=== PATIENT | male | born 2000 | race Caucasian/White ===

== ENCOUNTER 2024-03-31 19:41 | Emergency (ER) | payer MEDICAID, SELFPAY ==
[2024-03-31 19:42] VITALS: BP 156/86; PULSE 93; RESP 16; TEMP 36.8; O2SAT 96
--- NOTE | 2024-03-31 20:52 | ED.VIS.FALL ---
HPI HPI - Fall History of Present Illness Chief Complaint: Fall PFSH PFSH Allergy/AdvReac Type Severity Reaction Status Date / Time pear Allergy Severe Anaphylaxis Verified 03/31/24 19:46 Penicillins (PCN) Allergy Severe Rash Verified 03/31/24 19:46 Pertussis Vaccines Allergy Severe OTHER Verified 03/31/24 19:46 Social History Smoking Status: Never smoker EXAM Physical Exam Const Vital Signs: 03/31/24 19:42 03/31/24 20:48 03/31/24 21:42 Temperature 98.2 F Temperature Source Temporal Pulse Rate 93 70 Respiratory Rate 16 22 H Respiratory Effort Normal Non-Labored Blood Pressure 156/86 H 155/75 H Blood Pressure Mean 109 101 Pulse Ox 96 96 Oxygen Delivery Method Room Air Room Air Room Air MDM MDM MDM Narrative Medical decision making narrative: HISTORY OF PRESENT ILLNESS: 23-year-old male presents with fall. He notes headache, bilateral shoulder pain, low back pain after tripping and hitting a table around 430. Notes he took a gram of Tylenol prior to arrival. He further states REVIEW OF SYSTEMS: Pertinent positives: Headache, shoulder pain, back pain Pertinent negatives: Focal weakness or loss of sensation PHYSICAL EXAM: Nursing triage notes reviewed, Vital signs reviewed Primary Survey Airway: Intact Breathing: Bilateral breath sounds Circulation: Palpable bilateral femorals, Palpable bilateral radial, Palpable bilateral DP and Palpable bilateral PT Disability / Spine precautions GCS Score: Eye Openin Verbal Response: 5 Motor Response: 6 Secondary Survey Constitutional: Please see MDM Head: TTP over posterior occiput, midface stable, NO jaw malocclusion, No Cephalohematoma, and No Lacerations noted Eye: Pupils equal round and reactive to light, Extraocular muscles intact and No periorbital ecchymosis or stepoff, no evidence of entrapment ENT: Oropharynx clear, no lacerations, no hemotympanum, no raccoon eyes or workman sign Cervical spine / Neck: No cervical spine bony tenderness, crepitance, or stepoff deformity Trachea midline Lungs: Clear to auscultation, No asymmetric rise and No crepitus, no flail chest Cardiac: Regular rate and rhythm and No murmurs Abdomen: Soft, Nontender and No rebound Pelvis: Pelvis stable to compression : No evidence of genital injury Back: TTP over mid thoracic and upper lumbar spine. No obvious step-offs. Neuro: At baseline, intact strength and sensation in bilateral upper and lower extremities. 2+ patellar reflexes bilaterally. Extremities: NO gross Deformities Psych: Normal affect Nursing triage notes reviewed, Vital signs reviewed MEDICAL DECISION MAKING: Chief Complaint: Headache, back pain, bilateral shoulder External records reviewed: Imaging reviewed: No recent advanced imaging of the axial skeleton or head noted in the [facility] Narrative: Patient was hemodynamically stable, afebrile and nontoxic-appearing. Primary secondary trauma surveys concerning for the following differential: I considered the following differential diagnosis: Intracranial hemorrhage, cervical spine, thoracic spine lumbar spine traumatic injury I obtained imaging studies to further elucidate etiology the patient's complaint. ALL IMAGES (IF OBTAINED) HAVE BEEN PERSONALLY REVIEWED AND INTERPRETED BY MYSELF. CT scan of the head, cervical spine, thoracic lumbar spine were negative for acute traumatic injury. The patient is likely suffering from contusions of these areas. He was instructed to take Tylenol, ibuprofen, use ice. He was instructed return to the ED if symptoms change or worsen. He was given close follow-up instructions as well The patient and/or family, caregivers express understanding. The patient and/or family, caregivers agrees with the plan. Shared decision making: I will have a discussion with the patient and or visitors regarding risk/benefits of further testing or admission. They will be made aware of of the risk/benefits inherent in this decision they will be given the opportunity to voice understanding. Total critical care time today provided was at least 0 minutes. This excludes separately billable procedures. Critical care time (if documented) is secondary to the patient having high probability of clinically significant/life threatening deterioration in the patient's condition which required my urgent intervention. Impression: 1. Fall 2. Head contusion 3. Back contusion Dispo: Discharge home This note was generated with [employer] dictation software. It may contain incorrect words, spelling, and punctuation that were not noted in review of the chart prior to signing. Radiography Diagnostic Testing: Clinical Impression(s) from Imaging Studies Brain CT 03/31/24 21:20 IMPRESSION: 1. Normal CT examination 2. No intracranial evidence of acute traumatic injury. 3. No intracranial mass, hemorrhage or acute territorial infarct. 4. No fractures identified. 5. No radiographically significant sinus disease.. Electronically Signed: Byron Alexander MD at 21:42 EDT , Cervical Spine CT 03/31/24 21:20 IMPRESSION: 1. Reversal cervical lordosis which can be due to muscular spasm versus positioning 2. No evidence of acute cervical spinal fracture or spondylolisthesis. No acutely acquired canal stenosis. Electronically Signed: Byron Alexander MD at 21:44 EDT , Lumbar Spine CT 03/31/24 21:20 IMPRESSION: 1. No evidence of acute LUMBAR spinal fracture or spondylolisthesis. Electronically Signed: Byron Alexander MD at 22:38 EDT , Thoracic Spine CT 03/31/24 21:20 IMPRESSION: 1. No evidence of acute THORACIC spinal fracture or spondylolisthesis. Electronically Signed: Byron Alexander MD at 22:40 EDT , Discharge Plan Triage Chief Complaint: Fall ED Provider: Anotnio Rodriguez Dx/Rx/DC Orders Primary Care Provider: Care Physician,No Primary Referrals: Care Physician,No Primary [Primary Care Provider] - Print Language: Estonian
--- NOTE | 2024-03-31 21:20 | CT_ITS ---
INDICATION: back pain EXAMINATION: CT THORACIC SPINE - CT Spine Thoracic W/O Contrast Injection TECHNIQUE: Helically acquired images were obtained of the thoracic spine. 2D reformats were reviewed. A radiation dose optimization technique was used for this scan. IV Contrast dosage and agent: None. COMPARISON: None. FINDINGS: VERTEBRAE: No fracture. No discrete lytic or blastic abnormality observed. VERTEBRAL ALIGNMENT: Unremarkable. There is preservation of the normal thoracic kyphosis. DISCS: Disc heights are preserved. VISUALIZED THORAX: Visualized thoracic aorta is nondilated. Lung trevizo are clear. CT/Spine Thoracic without Contras IMPRESSION: 1. No evidence of acute THORACIC spinal fracture or spondylolisthesis. Electronically Signed: Byron Alexander MD at 22:40 EDT ,
--- NOTE | 2024-03-31 21:20 | CT_ITS ---
INDICATION: back pain EXAMINATION: CT LUMBAR SPINE - CT Spine Lumbar W/O Contrast Injection TECHNIQUE: Helically acquired images were obtained of the lumbar spine. 2D reformats were reviewed. A radiation dose optimization technique was used for this scan. IV Contrast dosage and agent: None. COMPARISON: None. FINDINGS: VERTEBRAE: No fracture or traumatic subluxation. No discrete lytic or blastic abnormality observed. Normal alignment. DISCS and SPINAL CANAL: Disc heights are preserved. No critical stenosis. VISUALIZED ABDOMEN: Visualized abdominal aorta is not dilated. There is no retroperitoneal adenopathy. CT/Spine Lumbar without Contrast IMPRESSION: 1. No evidence of acute LUMBAR spinal fracture or spondylolisthesis. Electronically Signed: Byron Alexander MD at 22:38 EDT ,
--- NOTE | 2024-03-31 21:20 | CT_ITS ---
INDICATION: neck pain EXAMINATION: CT CERVICAL SPINE - CT Spine Cervical W/O Contrast Injection TECHNIQUE: Helically acquired images were obtained of the cervical spine. 2D reformatted images were reviewed. A radiation dose optimization technique was used for this scan. Noncontrast images obtained. IV Contrast dosage and agent: None. Radiation Dose (provided by facility) CTDIvol (NA ) mGy, DLP ( NA) mGy-cm COMPARISON: : No relevant prior comparison study available FINDINGS: VERTEBRAE: No fracture or traumatic subluxation. No discrete lytic or blastic abnormality. There is reversal cervical lordosis. Normal craniocervical junction and cervicothoracic junction. Normal appearance of the odontoid process. DISCS and SPINAL CANAL: Disc heights are preserved. No critical stenosis. NECK SOFT TISSUES: No prevertebral soft tissue swelling. There is no cervical adenopathy. LUNG APICES: Clear. CT/Spine Cervical without Contras IMPRESSION: 1. Reversal cervical lordosis which can be due to muscular spasm versus positioning 2. No evidence of acute cervical spinal fracture or spondylolisthesis. No acutely acquired canal stenosis. Electronically Signed: Byron Alexander MD at 21:44 EDT ,
--- NOTE | 2024-03-31 21:20 | CT_ITS ---
INDICATION: head trauma EXAMINATION: CT BRAIN - CT Head or Brain W/O Contrast Injection TECHNIQUE: Multiple axial images were obtained of the head without intravenous contrast. A radiation dose optimization technique was used for this scan. IV Contrast dosage and agent: None. RADIATION DOSAGE (If Supplied By Facility): CTDIvol = ( 44.99 ) mGy, DLP = ( 829.85 ) mGycm COMPARISON: No relevant prior examinations for comparison FINDINGS: HEMISPHERES: 1. The cerebral parenchyma, ventricular system, subarachnoid spaces have normal configuration and density. There is a normal gyral pattern. There is normal han/white differentiation. No midline shift.. 2. The hemispheric white matter has normal appearance. 3. No intraparenchymal mass, hemorrhage, or acute territorial infarct. CEREBELLUM - BRAINSTEM: The cerebellum, brainstem, basilar and suprasellar cisterns have normal appearance. No Chiari malformation. PITUITARY: Infundibulum and pituitary have normal configuration. Midline structures appear normal. CSF SPACES: Appropriate for age. No hydrocephalus. Basal cisterns are patent. VESSELS: 1. No significant vascular calcifications in the cavernous carotid vessels. 2. No hyperdense vascular signs noted.. ORBITS AND PARANASAL SINUSES: 1. Normal appearance of the bony orbits. Normal appearance of the globes and retrobulbar soft tissues.. 2. Paranasal sinuses are clear. BONY ELEMENTS: Bony elements of the cranial vault, facial skeleton and skull base have normal appearance. SCALP AND SOFT TISSUES: Normal appearance of the soft tissues of the scalp and the visualized face OTHER: None ASPECTS Score for Acute Strokes: 10 CT/Brain/Head without Contrast IMPRESSION: 1. Normal CT examination 2. No intracranial evidence of acute traumatic injury. 3. No intracranial mass, hemorrhage or acute territorial infarct. 4. No fractures identified. 5. No radiographically significant sinus disease.. Electronically Signed: Byron Alexander MD at 21:42 EDT ,
[2024-03-31 21:42] VITALS: BP 155/75; PULSE 70; RESP 22; O2SAT 96
[2024-03-31 21:58] VITALS: BMI 68.5
[2024-03-31 23:00] VITALS: BP 142/55; PULSE 72; RESP 20; TEMP 35.8; O2SAT 98
== END 2024-03-31 23:42 | disposition home or self-care (01) ==
PROVIDERS: Emergency Provider Emergency Medicine; Visit Provider Emergency Medicine
DX: S00.93XA Contusion of unspecified part of head, initial encounter (principal); S20.229A Contusion of unspecified back wall of thorax, initial encounter; W01.190A Fall on same level from slipping, tripping and stumbling with subsequent striking against furniture, initial encounter
CPT/HCPCS: 70450; 72125; 72128; 72131; 99282